=== PATIENT | female | born 1970 | race Caucasian/White ===

== ENCOUNTER 2022-08-14 17:46 | Emergency (ER) | payer MEDICARE ==
[~2022-08-14] VITALS: Ht 155 cm; Wt 58.9 kg
--- NOTE | 2022-08-14 18:18 | ED Back Pain ---
General Chief Complaint: Back Problems Stated Complaint: BACK PAIN Nursing Triage Note: PT STATES HX OF CHRONIC BACK PAIN, HAS FALLEN SEVERAL TIMES LATELY, LAST SURGERY ON BACK WAS 01/07/22. 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 Patient states she has a history of pain in her cervical spine and lower back. She states she has had surgery in her cervical spine in the past by Dr. Uribe in [place]. She has not been able to follow-up since the surgery several years ago. Patient states she had a fall about 3 months ago reinjuring her neck and back. She states she has had x-rays but they were n egative of her lower back for fracture. She reports pain in her right and left lower extremities. Described as numbness and tingling that radiates to the calves bialteral. History of similar type neuropathy type pain. She is currently on gabapentin. She denies of any bowel or urine incontinence or saddle paresthesia, lower extremity weakness. Denies of any urinary symptoms. Denies any numbness and tingling in her upper extremity. She does report a stiff neck. Patient follows [facility]. Does have referral to [facility]. She states this pain has gotten worse over the past 2 weeks. She does take oxycodone 10 325 mg 3-4 times a day without much improvement. She has had epidurals in the past without much improvement. She denies fever, night sweats, weight loss, Garry pain, chest pain, cough or shortness of breath, bowel or urine incontinence, saddle paresthesia Allergies and Home Medications Patient Home Medication List Home Medication List Reviewed: Yes Review of Systems Constitutional: No chills EENTM: No ear pain, No blurred vision, No double vision Respiratory: No cough, No dyspnea on exertion Cardiovascular: No chest pain Gastrointestinal: No abdominal pain, No diarrhea, No nausea, No vomiting Genitourinary: No decreased output, No discharge, No dysuria, No frequency Musculoskeletal: back pain, joint pain, joint swelling, muscle pain Psychiatric/Neurological: Denies Anxiety, Denies Depressed All Other Systems Reviewed Negative Unless Noted: Yes Past Ikbjrdl-Txmvvq-Xhgurh Hx Patient Social History Tobacco Use?: Yes Tobacco type used: Cigarettes Smoking Status: Current Everyday Smoker Substance use?: No Alcohol Use?: No Past Medical History Surgery/Hospitalization HX: SEVERAL SURGERIES ON BACK AND NECK, NHI'S DISEASE, RA, "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 oz. kg; 24.00 BMI Method: General Appearance: No Apparent Distress, WD/WN HEENT: PERRL/EOMI, TMs Normal, Normal ENT Inspection, Pharynx Normal Neck: Full Range of Motion, Normal Inspection, Non Tender, Supple Cardiovascular: Regular Rate, Rhythm, No Edema, No Gallop, No JVD, No Murmur Respiratory: Chest Non Tender, Lungs Clear, Normal Breath Sounds, No Accessory Muscle Use, No Respiratory Distress Gastrointestinal: Normal Bowel Sounds, No Organomegaly, No Pulsatile Mass, Non Tender Back: Vertebral Tenderness (Or lumbar midline tenderness. No swelling, bruising or redness.), Other (Cervical midline tenderness, bilateral cervical paraspinal muscle tenderness. Pain with range of motion. Neurovascular intact) Extremity: Normal Range of Motion, Other (Bruising left deltoid. Neurovascular intact upper and lower extremity. Normal reflexes lower extremity. Rivet Spinner strength 5-5. Knee flexion extension strength 5 out of 5. Dorsiflexion planta rflexion strength 5-5) Neurologic/Psychiatric: Alert, Oriented x3, No Motor/Sensory Deficits, Normal Mood/Affect, loan specialist II-XII Norm as Tested Skin: Other (brusing left deltoid.) Progress/Results/Core Measures Results/Orders Lab Results Laboratory Tests Test 08/14/22 19:00 Range/Units Urine Color YELLOW Urine Clarity CLEAR Urine pH 5.5 5-9 Urine Specific Shelly 1.025 H 1.016-1.022 Urine Protein NEGATIVE NEGATIVE Urine Glucose (UA) NEGATIVE NEGATIVE Urine Ketones NEGATIVE NEGATIVE Urine Nitrite NEGATIVE NEGATIVE Urine Bilirubin NEGATIVE NEGATIVE Urine Urobilinogen 0.2 < = 1.0 MG/DL Urine Leukocyte Esterase NEGATIVE NEGATIVE Urine RBC (Auto) NEGATIVE NEGATIVE Urine RBC RARE /HPF Urine WBC 0-2 /HPF Urine Squamous Epithelial Cells 5-10 /HPF Urine Crystals PRESENT H /LPF Urine Amorphous Sediment RARE BRYCE URATES H /LPF Urine Bacteria TRACE /HPF Urine Casts NONE /LPF Urine Mucus SMALL H /LPF Urine Culture Indicated NO My Orders Orders - BRUCE DELATORRE Ua Culture If Indicated (08/14/22 17:54) Ct Lumbar Spine Wo (08/14/22 18:11) Ct Cervical Spine Wo (08/14/22 18:11) Vital Signs/I&O 08/14/22 08/14/22 17:58 19:27 Temp 35.7 35.7 Pulse 100 99 Resp 20 20 B/P (MAP) 163/94 (117) 160/94 Pulse Ox 96 96 O2 Delivery Room Air Room Air Blood Pressure Mean: 117 Departure Communication (PCP) Reviewed previous ER visits, H&P, lab testing. Differential diagnosis of vertebral body fracture, degenerative disc disease, bulging disc. Patient is afebrile. Denies of any drug use, extensive steroid use, osteoporosis. Chronic pain in her lower back and cervical spine. Worse pain over the past 2 weeks. she does take oxycodone 10 mg daily for this back pain. She has received epidurals without much improvement in the past. Extensive medical history. Fall about 3 months ago. She states she has had x-ray of her lower back but not her cervical spine since a fall 3 months ago. due to the worsening pain CT scan of the cervical and lumbar spine was ordered. Patient with chronic radiculopathy pain bialteral lower extremity, but worse over the past tw odays. She does use a walker. Patient without any neurological red flag findings. She has no bowel or urine incontinence, saddle paresthesia, lower extremity weak ness. Equal pulses lower extremity. CT scan of the cervical neck noted no acute findings. Chronic findings noted. CT scan lumbar spine showed no acute lumbar fracture. L3 on L4 with diffuse disc bulge and large partially calcified posterior disc extrusion herniation. Severe central canal stenosis, severe left neural foramen narrowing and moderate right neural foramen narrowing. Patient refused anything for pain. Patient was wanting a follow-up with neurosurgery. She thought we had neurosurgery at our facility. Did provide outpatient follow- up with [facility]. Provided number and discharge instructions. Concerning with today's findings that she does need neurosurgery follow-up. No neurological red flag findings suggesting emergent intervention at this time. She is able to ambulate. Difficulty getting around at home secondary to the pain. Discussed return precautions. Refused anything for pain. Impression Primary Impression: Chronic back pain Disposition: HOME, SELF-CARE Condition: Stable Departure-Patient Inst. Decision time for Depature: 19:21 Referrals: [facility] [place],LOCAL PHYSICIAN (PCP) Primary Care Physician Patient Instructions: Low Back Pain (DC) Add. Discharge Instructions: Recommend following up with neurosurgery at [facility]. [phone] if any worsening pain, bowel or urine continence, saddle paresthesia to return back to ED. All discharge instructions reviewed with patient and/or family. Voiced understanding. BRUCE DELATORRE Aug 14, 2022 18:17
--- NOTE | 2022-08-14 18:57 | Diagnostic Imaging Report ---
CLINICAL INDICATION: Patient with chronic back pain. Patient fell several times lately. Patient had surgery on back 01/07/2022. EXAM: Axial CT scan of the lumbar spine performed without IV contrast. Sagittal and coronal reformatted images were created. COMPARISON: None. FINDINGS: There is no acute lumbar spine fracture. There is no significant paraspinal soft tissue abnormality. Nonobstructive left renal stone is noted. L1-L2: There is no significant central canal or neural foramen narrowing. L2-L3: There is subtle grade 1 anterolisthesis of L2 on L3 with no pars defect. There is appearance of a mild diffuse disk bulge. There is at least mild central canal narrowing. There is no significant right neural foramen narrowing and mild left neural foramen narrowing. L3-L4: There is roughly 5 mm of grade 1 anterolisthesis of L3 on L4. There is severe loss of disk space height, endplate sclerosis and diffuse disk bulge with large central posterior disk extrusion/herniation which appears partially calcified. The disk herniation measures 10 mm in craniocaudal dimension and 9 mm x 16 mm in AP x transverse dimensions. There is associated severe central canal stenosis. There is bilateral facet arthropathy. There is severe left neural foramen narrowing and moderate right neural foramen narrowing. L4-L5: There is a diffuse disk bulge and moderate loss of disk space height. There is bilateral facet arthropathy. There is no significant left neural foramen narrowing. There is mild right neural foramen narrowing. There is no significant central canal narrowing. L5-S1: There is a small posterior disk bulge. There is mild bilateral facet arthropathy. There is no significant central canal or neural foramen narrowing. IMPRESSION: 1: There is no acute lumbar spine fracture. 2: There is grade 1 anterolisthesis of L3 on L4 with diffuse disk bulge and large partially calcified posterior disk extrusion/herniation. There is severe central canal stenosis, severe left neural foramen narrowing and moderate right neural foramen narrowing. There is severe loss of disk space height. 3: There is subtle grade 1 anterolisthesis of L2 on L3 with degenerative disk disease. This is described above. Dictated by: Dictated on workstation # [id number]
--- NOTE | 2022-08-14 19:00 | Diagnostic Imaging Report ---
PROCEDURE: CT cervical spine without contrast. TECHNIQUE: Multiple contiguous axial images were obtained through the cervical spine without the use of intravenous contrast. Sagittal and coronal reformations were then performed. Auto Exposure Controls were utilized during the CT exam to meet ALARA standards for radiation dose reduction. INDICATION: Pain after fall. FINDINGS: There are postsurgical changes of an anterior cervical fusion from C3 through C6. There is a single screw at C3. There is some lucency about the C3 screw. This may reflect loosening. There is 5 mm of anterolisthesis of C3 on C4. There is also 5 mm of anterolisthesis of C6 on C7. Vertebral body heights are well-maintained. There is no fracture. Prevertebral soft tissues are within normal limits. IMPRESSION: Postsurgical changes of an anterior cervical fusion from C3 through C6 with anterolisthesis of C3 on C4 and C6 on C7, as described. Dictated by: Dictated on workstation # [id number]
[2022-08-14 19:08] LABS: BILIRUBIN,URINE NEGATIVE (NEGATIVE); CLARITY,URINE CLEAR; COLOR,URINE YELLOW; GLUCOSE, URINE (UA) NEGATIVE (NEGATIVE); KETONES,URINE NEGATIVE (NEGATIVE); LEUKOCYTE ESTERASE ,URINE NEGATIVE (NEGATIVE); NITRITE,URINE NEGATIVE (NEGATIVE); PH,URINE 5.5 (5-9); PROTEIN,URINE NEGATIVE (NEGATIVE)
[2022-08-14 19:26] LABS: AMORPHOUS SEDIMENT,UR RARE AMOR URATES /LPF; BACTERIA,URINE TRACE /HPF; RBC,URINE RARE /HPF; WBC,URINE 0-2 /HPF
[2022-08-14 19:27] VITALS: BP 160/94
== END 2022-08-14 19:27 | disposition home or self-care (01) ==
LOC: ER 17:50
DX: M51.16 Intervertebral disc disorders with radiculopathy, lumbar region (principal); G89.29 Other chronic pain; M48.061 Spinal stenosis, lumbar region without neurogenic claudication; M54.2 Cervicalgia; S40.012A Contusion of left shoulder, initial encounter; F17.210 Nicotine dependence, cigarettes, uncomplicated; Z79.1 Long term (current) use of non-steroidal anti-inflammatories (NSAID); Z79.899 Other long term (current) drug therapy; Z98.890 Other specified postprocedural states; W19.XXXA Unspecified fall, initial encounter
CPT/HCPCS: 72125; 72131; 81000

== ENCOUNTER 2022-08-15 21:16 | Emergency (ER) | payer MEDICARE ==
--- NOTE | 2022-08-15 21:33 | ED Back Pain ---
General Stated Complaint: BACK/LEG PAIN Source of Information: Patient, Old Records History of Present Illness Date Seen by Provider: Aug 15, 2022 Time Seen by Provider: 20:29 Initial Comments PT ARRIVES VIA POV, WANTS WHEELCHAIR ON ARRIVAL ( PT LIVES IN [place], [place]) PT C/O CHRONIC BACK PAIN PT STATES SHE WENT TO [facility] IN [place] AND WAITED 2 HOURS AND SHE GOT TIRED OF WAITING, SO SHE WENT TO [facility] IN [place] AND DIDN'T WANT TO WAIT THERE FOR HOURS SO SHE CAME HERE PT WAS SEEN HERE YESTERDAY FOR THIS PROBLEM ( ONLY VISIT HERE) AND HAD CT SCAN OF SPINE DONE AND WAS ADVISED TO FOLLOW UP WITH [facility]. THERE WERE NO ACUTE OR EMERGENT FINDINGS--ALL CHRONIC CHANGES. SHE HAS BEEN SEEN AT MULTIPLE OTHER FACILITIES FOR THIS PROBLEM, AND SHE HAS NOT FOLLOWED UP WITH ANY SPECIALISTS ADVISED SHE STATES SHE HAS TAKEN 4 OF HER PAIN PILLS TODAY AND THEY AREN'T HELPING, THEN SHE CLAIMS "I DON'T WANT PAIN PILLS" STATES SHE IS HERE "TO GET HER BACK FIXED"--SHE HAS BEEN ADVISED MULTIPLE TIMES THAT WE DO NOT HAVE ANY SPINE SURGEONS HERE OR ANY CHRONIC PAIN MANAGEMENT SERVICES HERE. THIS IS A CHRONIC PROBLEM FOR YEARS. SHE HAS HAD MULTIPLE SURGERIES ON HER BACK AND NECK IN THE PAST SYMPTOMS ARE NOT ANY DIFFERENT TODAY. SHE SEES SIDNEY RAMOS IN [facility]. SHE IS PRESCRIBED OXYCODONE 10/325 #180 MONTHLY FOR AT LEAST THE LAST YEAR, AND LAST FILLED ON 08/13/22 SHE HAS ALSO BEEN PRESCRIBED MORPHINE EARLIER THIS YEAR BY HIM SHE HAS BEEN PRESCRIBED GABAPENTIN #90, FILLED ON 07/31/22, WELL FLEXERIL #60 FILLED ON 07/21/22. 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 oz. kg; 24.00 BMI Method: General Appearance: WD/WN, Other (PT IS TALKING LOUDLY, NON-STOP) Neurologic/Psychiatric: Alert, Oriented x3, No Motor/Sensory Deficits Skin: Normal Color, Warm/Dry Progress/Results/Core Measures Progress Progress Note : Progress Note DISCUSSED WITH PT THAT SHE HAS HAD A MEDICAL SCREENING EXAM, SHE DOES NOT HAVE ANY ACUTE OR EMERGENT FINDINGS, SHE HAS PAIN MEDICATIONS. ADVISED HER I WOULD NOT PRESCRIBE ANY OTHER MEDICATIONS, AND ADVISED HER THAT SHE NEEDS TO FOLLOW UP WITH NEURO SPINE SURGERY WAS PREVIOUSLY RECOMMENDED TO HER. ADVISED HER THAT WE DO NOT HAVE ANY SPINE SURGEONS HERE, NOR DO WE HAVE ANY CHRONIC PAIN MANAGEMENT SERVICES HERE AT THIS FACILITY. ADVISED HER THAT THERE WAS NO INDICATION FOR HER TO BE TRANSFERRED TO ANOTHER FACILITY, HER SYMPTOMS ARE CHRONIC AND THERE IS NOTHING ACUTE OR EMERGENT AT THIS TIME. Departure Impression Primary Impression: Chronic back pain Disposition: 01 HOME, SELF-CARE Condition: Stable Departure-Patient Inst. Decision time for Depature: 21:32 Referrals: TWAN RAMOS (PCP/Family) Primary Care Physician Patient Instructions: CHRONIC PAIN Add. Discharge Instructions: FOLLOW ALL PREVIOUS INSTRUCTIONS RUTH RODARTE DO Aug 15, 2022 21:33
== END 2022-08-15 21:37 | disposition home or self-care (01) ==
LOC: EDUNIT# 21:16 → ER 21:18
DX: M54.9 Dorsalgia, unspecified (principal); G89.29 Other chronic pain; Z79.891 Long term (current) use of opiate analgesic
CPT/HCPCS: 99281